=== PATIENT | male | born 1985 | race Caucasian/White ===

== ENCOUNTER 2023-05-24 13:16 | Emergency (ER) | payer SELFPAY ==
[~2023-05-24] VITALS: Ht 182.9 cm; Wt 108.9 kg
[2023-05-24 13:27] VITALS: BP 145/89; PULSE 100; RESP 18; TEMP 98.4; O2SAT 96
[2023-05-24 13:45] VITALS: O2SAT 96
[2023-05-24 14:15] LABS: APPEARANCE,URINE CLEAR (CLEAR); BILIRUBIN,URINE NEGATIVE (NEGATIVE); BLOOD, URINE NEGATIVE (NEGATIVE); COLOR,URINE YELLOW (YELLOW); LEUKOCYTE ESTERASE ,URINE NEGATIVE (NEGATIVE); NITRITE, URINE NEGATIVE (NEGATIVE); PROTEIN,URINE NEGATIVE (NEGATIVE); UGLUCOSE NEGATIVE (NEGATIVE); UROBILINOGEN,URINE 0.2 EU/dL (0.2 - 1)
[2023-05-24] MEDS ORDERED: IBUP-2213 PO (14:43)
[2023-05-24] MEDS ORDERED: OMEP40EC23 PO (14:43)
[2023-05-24] MEDS: KETOROLAC 60 MG/2 ML VIAL IM ONE (14:52)
== END 2023-05-24 15:17 | disposition home or self-care (01) ==
LOC: MED 13:16
DX: R10.13 Epigastric pain (principal); Z79.899 Other long term (current) drug therapy
CPT/HCPCS: 81003; 96372; 99283; J1885

== ENCOUNTER 2023-05-30 20:56 | Inpatient (IN) | payer SELFPAY ==
[~2023-05-30] VITALS: Ht 182.9 cm; Wt 115.7 kg
[~2023-05-30 20:56] MED LIST: IBUP-2213 PO; OMEP40EC23 PO
[2023-05-30 21:12] VITALS: BP 158/107; PULSE 92; RESP 19; TEMP 98.1; O2SAT 96
[2023-05-30 22:30] LABS: ANION GAP 12.2 (8-16); CALCIUM 9.4 mg/dL (8.5-10.1); CARBON DIOXIDE 29.8 mmol/L (21-32)
[2023-05-30 22:37] LABS: ALBUMIN 4.3 g/dL (3.4-5.0); TOTAL BILIRUBIN 0.4 mg/dL (0.0-1.0); TOTAL PROTEIN, SERUM 8.9 g/dL (6.4-8.2)
[2023-05-31 00:21] LABS: BASOPHILS # (AUTO) 0.1 K/uL (0.00-0.22); BASOPHILS % (AUTO) 0.5 % (0.0-2.0); EOSINOPHILS # (AUTO) 2.6 K/uL (0-0.4); EOSINOPHILS % (AUTO) 13.8 % (0.0-4.0); HEMATOCRIT 44.4 % (36-52); HEMOGLOBIN 15.2 g/dL (12.0-18.0); LYMPHOCYTES # (AUTO) 2.2 K/uL (2.0-11.5); LYMPHOCYTES % (AUTO) 11.7 % (20.5-51.1); MEAN CORPUSCULAR HEMOGLOBIN 30 pg (27-31); MEAN CORPUSCULAR HGB CONC 34 g/dL (33-37); MEAN CORPUSCULAR VOLUME 87.3 fL (80-94); MONOCYTES # (AUTO) 1.1 K/uL (0.8-1.0); MONOCYTES % (AUTO) 5.9 % (1.7-9.3); NEUTROPHILS # (AUTO) 12.9 K/uL (1.8-7.7); NEUTROPHILS % (AUTO) 68.1 % (42.2-75.2); PLATELET COUNT (AUTO) 241 K/uL (140-450); RED BLOOD CELL COUNT(AUTO) 5.08 MIL/uL (4.20-6.10)
[2023-05-31] MEDS: NACL 0.9% 1,000 ML IV ONE (00:56)
[2023-05-31] MEDS: NACL 0.9% 1,000 ML IV SCH (06:22)
[2023-05-31 10:00] VITALS: BP 135/88; PULSE 82; RESP 18; TEMP 99.5; O2SAT 99
[2023-05-31] MEDS ORDERED: ACETAMINOPHEN 325 MG TAB PO PRN (10:15)
[2023-05-31] MEDS ORDERED: MORPHINE SULFATE 2 MG/ML SYR IVP PRN (10:15)
[2023-05-31] MEDS ORDERED: ONDANSETRON 4 MG/2 ML VIAL IVP PRN (10:15)
[2023-05-31] MEDS ORDERED: MAG SULF 2000 MG/WATER PREMIX 50 ML IV PRN (10:15)
[2023-05-31] MEDS ORDERED: MELATONIN 3 MG TAB PO PRN (10:15)
[2023-05-31] MEDS ORDERED: KCL 20 MEQ IN 100 mL PREMIX 200 ML IV PRN (10:15)
[2023-05-31] MEDS ORDERED: POLYETHYLENE GLYCOL 17 GM/PKT PO PRN (10:15)
[2023-05-31] MEDS ORDERED: HYDROcodone/APAP 5/325 MG 1 TAB TAB PO PRN (10:15)
[2023-05-31 11:11] VITALS: PULSE 73; RESP 16
[2023-05-31 12:00] VITALS: BP 127/57; PULSE 63; RESP 16; TEMP 98.7
[2023-05-31] MEDS: PIPERACILLIN/TAZOBACTAM 3.375 GM in DEXTROSE 5% 50 ML IV SCH (12:05)
[2023-05-31 17:07] LABS: BASOPHILS # (AUTO) 0.1 K/uL (0.00-0.22); BASOPHILS % (AUTO) 0.8 % (0.0-2.0); EOSINOPHILS # (AUTO) 2.5 K/uL (0-0.4); EOSINOPHILS % (AUTO) 20.5 % (0.0-4.0); HEMOGLOBIN 13.9 g/dL (12.0-18.0); LYMPHOCYTES # (AUTO) 2.7 K/uL (2.0-11.5); LYMPHOCYTES % (AUTO) 22.8 % (20.5-51.1); MEAN CORPUSCULAR HEMOGLOBIN 30 pg (27-31); MEAN CORPUSCULAR HGB CONC 35 g/dL (33-37); MEAN CORPUSCULAR VOLUME 86.2 fL (80-94); MONOCYTES # (AUTO) 1.2 K/uL (0.8-1.0); NEUTROPHILS # (AUTO) 5.5 K/uL (1.8-7.7); NEUTROPHILS % (AUTO) 45.9 % (42.2-75.2); PLATELET COUNT (AUTO) 212 K/uL (140-450); RED BLOOD CELL COUNT(AUTO) 4.64 MIL/uL (4.20-6.10); RED CELL DISTRIBUTION WIDTH 13.1 % (11.6-13.7)
[2023-05-31] MEDS ORDERED: METR-435 PO (17:56)
[2023-05-31] MEDS ORDERED: CIPR500T4 PO (17:56)
[2023-05-31] MEDS ORDERED: LACT1CAP63 PO (17:56)
== END 2023-05-31 19:18 | disposition home or self-care (01) | DRG 872 ==
LOC: MED 20:56 → MTU 05-31 06:16
PROVIDERS: ADMIT Family Medicine; ATTEND Family Medicine
DX: A41.9 Sepsis, unspecified organism (principal); K56.609 Unspecified intestinal obstruction, unspecified as to partial versus complete obstruction; K52.9 Noninfective gastroenteritis and colitis, unspecified; Z79.899 Other long term (current) drug therapy
CPT/HCPCS: 36415; 80048; 80076; 83605; 83690; 85025; 87040; 87081; 99285; J2543; J7060